=== PATIENT | male | born 1995 | race Caucasian/White ===

== ENCOUNTER → 2024-04-17 07:52 | Outpatient (BNVA) | payer OTHER, SELFPAY | DX: Z77.21 Contact with and (suspected) exposure to potentially hazardous body fluids (principal); Z02.79 Encounter for issue of other medical certificate | CPT/HCPCS: 84450; 84460; 87389; 99211 ==

== ENCOUNTER → 2024-06-04 08:20 | Outpatient (BNVA) | payer OTHER, SELFPAY | DX: Z77.21 Contact with and (suspected) exposure to potentially hazardous body fluids (principal) | CPT/HCPCS: 84450; 84460; 86803; 87389; 99211 ==

== ENCOUNTER → 2024-09-03 09:17 | Outpatient (BNVA) | payer OTHER, SELFPAY | DX: Z77.21 Contact with and (suspected) exposure to potentially hazardous body fluids (principal); Z02.79 Encounter for issue of other medical certificate | CPT/HCPCS: 84450; 84460; 86803; 87389; 99211 ==